=== PATIENT | male | born 1965 | race Caucasian/White ===

== ENCOUNTER 2020-10-27 15:08 | Emergency (ER) | payer MEDICAID ==
[2020-10-27 15:29] VITALS: BP 132/76; PULSE 82
--- NOTE | 2020-10-27 16:08 | EDM.PDOC ---
ED HPI GENERAL MEDICAL PROBLEM - General Chief Complaint: Chest Pain Stated Complaint: TIGHTNESS IN L SIDE OF CHEST Time Seen by Provider: 10/27/20 15:40 Source of Information: Reports: Patient History Limitations: Reports: No Limitations - History of Present Illness INITIAL COMMENTS - FREE TEXT/NARRATIVE: 55-year-old male who has been having a dull left-sided very localized chest pressure or tightness which waxes and wanes with activity, as well as some persistent fatigue. No fevers or chills, no shortness of breath, no pleuritic chest pain, no diaphoresis or nausea or vomiting. The pain does not radiate to the arm or back, neck or jaw. Sometimes it lasts just a few minutes, other times it lasts 10 to 20 minutes. He is usually very active and works out with his kids, including boxing and aerobic activity. He called the clinic to discuss whether it could be a reaction to his second Covid vaccination which he had 3 weeks ago, and he was told to go to the ER. He arrives asymptomatic. Onset: Gradual, Unknown/Unsure Duration: Week(s): (Symptoms for the past 2 to 3 weeks) Location: Reports: Chest (Left parasternal anterior chest) Associated Symptoms: Reports: Chest Pain (Pressure sensation in the left chest), Other (Only other symptom is fatigue and activity intolerance compared to his baseline). Denies: Confusion, Diaphoresis, Fever/Chills, Headaches, Loss of Appetite, Malaise, Shortness of Breath Chest Pain Score (Numeric/FACES): 4 - Related Data Allergies Allergy/AdvReac Type Severity Reaction Status Date / Time Sulfa (Sulfonamide Allergy Severe Hives Verified 10/27/20 15:42 Antibiotics) allopurinol Allergy Stomach Verified 10/27/20 15:42 Upset [id number] Reductase Allergy Cannot Verified 10/27/20 15:42 Inhibitor Remember Home Meds: Home Meds metFORMIN [Glucophage XR] 500 mg PO DAILY 10/15/12 [History] Febuxostat [Uloric] 40 mg PO DAILY 07/29/15 [History] lisinopriL [Zestril] 10 mg PO DAILY 07/29/15 [History] Past Medical History HEENT History: Reports: Impaired Vision Other HEENT History: Lasik to bilateral eyes Cardiovascular History: Reports: Hypertension Other Cardiovascular History: Rheumatic fever Genitourinary History: Reports: Renal Calculus Musculoskeletal History: Reports: Gout Endocrine/Metabolic History: Reports: Diabetes, Type II - Infectious Disease History Infectious Disease History: Reports: Chicken Pox, Measles, Mumps, Rheumatic Fever - Past Surgical History Cardiovascular Surgical History: Reports: None Male Surgical History: Reports: Kidney Stone Extraction, Renal Calculus Musculoskeletal Surgical History: Reports: None Social & Family History - Family History Family Medical History: No Pertinent Family History - Tobacco Use Tobacco Use Status *Q: Current Every Day Tobacco User Years of Tobacco use: 16 Packs/Tins Daily: 1 ED ROS GENERAL - Review of Systems Review Of Systems: See Below Constitutional: Denies: Fever, Chills HEENT: Reports: No Symptoms Respiratory: Denies: Shortness of Breath, Pleuritic Chest Pain Cardiovascular: Reports: Chest Pain, Other (Had a stress test 8 years ago and did well). Denies: Palpitations GI/Abdominal: Denies: Abdominal Pain, Decreased Appetite, Nausea, Vomiting : Reports: No Symptoms Musculoskeletal: Reports: No Symptoms Skin: Reports: No Symptoms Neurological: Reports: Dizziness, Weakness (Mild generalized weakness and fatigue with activity) Psychiatric: Reports: No Symptoms ED EXAM, GENERAL - Physical Exam Exam: See Below Exam Limited By: No Limitations General Appearance: Alert, No Apparent Distress Eye Exam: Bilateral Eye: Normal Inspection Head: Atraumatic Neck: Supple, Non-Tender Respiratory/Chest: Lungs Clear Cardiovascular: Regular Rate, Rhythm, No Murmur. No: Tachycardia GI/Abdominal: Soft, Non-Tender Extremities: Normal Inspection. No: Pedal Edema Neurological: Alert, Oriented Psychiatric: Normal Affect, Normal Mood Skin Exam: Warm, Dry #1 Interpretation EKG Date: 10/27/20 Time: 15:35 Rhythm: NSR QRS: Normal ST-T: Normal Comparison: NA - No Prior EKG EKG Interpretation Comments: Minimal diffuse ST elevation is nonspecific Course - Vital Signs Last Recorded V/S: Last Vital Signs Temp 97.6 F 10/27/20 15:28 Pulse 82 10/27/20 15:28 Resp 13 10/27/20 15:28 BP 132/76 10/27/20 15:28 Pulse Ox 97 10/27/20 15:28 - Orders/Labs/Meds Orders: Active Orders 24 hr Category Date Time Status EKG 12 Lead [EK] Routine Ther 10/27/20 16:03 Ordered Labs: Laboratory Tests 10/27/20 10/27/20 10/27/20 Range/Units 16:10 16:10 16:10 WBC 6.2 (4.5-11.0) K/uL RBC 4.90 (4.30-5.90) M/uL Hgb 15.8 H (12.0-15.0) g/dL Hct 44.4 (40.0-54.0) % MCV 91 (80-98) fL MCH 32 H (27-31) pg MCHC 36 (32-36) % Plt Count 228 (150-400) K/uL Neut % (Auto) 43.3 (36-66) % Lymph % (Auto) 42.5 (24-44) % [place] % (Auto) 8.8 H (2-6) % Eos % (Auto) 4.3 H (2-4) % Baso % (Auto) 1.1 H (0-1) % ESR 10 (0-20) mm/hr D-Dimer, Quantitative 334.20 (0.0-500.0) ng/mL Sodium 133 L (140-148) mmol/L Potassium 4.4 (3.6-5.2) mmol/L Chloride 100 (100-108) mmol/L Carbon Dioxide 26 (21-32) mmol/L Anion Gap 11.4 (5.0-14.0) mmol/L BUN 15 (7-18) mg/dL Creatinine 1.0 (0.8-1.3) mg/dL Est Cr Clr Drug Dosing 82.48 mL/min Estimated GFR (MDRD) > 60 (>60) Glucose 146 H (74-106) mg/dL Calcium 8.9 (8.5-10.1) mg/dL Total Bilirubin 0.2 (0.2-1.0) mg/dL AST 36 (15-37) U/L ALT 81 H (12-78) U/L Alkaline Phosphatase 69 (46-116) U/L Troponin I < 0.017 (0.000-0.056) ng/mL Total Protein 7.2 (6.4-8.2) g/dL Albumin 3.7 (3.4-5.0) g/dL Globulin 3.5 (2.3-3.5) g/dL Albumin/Globulin Ratio 1.1 L (1.2-2.2) - Re-Assessments/Exams Free Text/Narrative Re-Assessment/Exam: 10/27/20 16:08 EKG is nonspecific, after a long discussion CBC, CMP, troponin, CRP and sed rate were obtained. Two-view chest x-ray also ordered. 10/27/20 17:18 Troponin 0, CBC is normal, CMP is reassuring, sed rate is normal and two-view chest x-ray is negative. D-dimer is also normal. I recommended the patient be set up for stress test and offered to do that but he wanted to talk to his primary provider in the next few days about this first. He will return if the pain recurs and is persistent, or it worsens such as radiation of pain. Departure - Departure Time of Disposition: 17:28 Disposition: Home, Self-Care 01 Clinical Impression: Chest pain, atypical - Discharge Information Instructions: Nonspecific Chest Pain, Adult, [id number] Referrals: Elizabeth Luong PA [Primary Care Provider] - Forms: ED Department Discharge Care Plan Goals: Activity as tolerated, continue your regular medications, and consider talking to your primary provider about setting up a stress test in the near future. Return to the emergency room at any time if pain recurs and is persistent especially with radiation to the arm or jaw, diaphoresis or significant shortne ss of breath. Sepsis Event Note (ED) - Evaluation Sepsis Screening Result: No Definite Risk - My Orders Last 24 Hours: My Active Orders 10/27/20 16:03 EKG 12 Lead [EK] Routine - Assessment/Plan Last 24 Hours: My Active Orders 10/27/20 16:03 EKG 12 Lead [EK] Routine
--- NOTE | 2020-10-28 08:52 | CR ---
CHEST: 2 view CLINICAL HISTORY:Dyspnea COMPARISON:None FINDINGS: The heart size, pulmonary vascularity and hilar structures are normal. No infiltrate effusion or pneumothorax is seen. IMPRESSION: No acute cardiopulmonary process.
== END 2020-10-27 17:29 | disposition home or self-care (01) ==
LOC: JP.ED 15:08
DX: R07.89 Other chest pain (principal); I10 Essential (primary) hypertension; E11.9 Type 2 diabetes mellitus without complications; Z79.84 Long term (current) use of oral hypoglycemic drugs; Z72.0 Tobacco use; Z88.2 Allergy status to sulfonamides; Z88.8 Allergy status to other drugs, medicaments and biological substances; Z79.899 Other long term (current) drug therapy
CPT/HCPCS: 36415; 71046; 71046-26; 80053; 84484; 85025; 85379; 85651; 93005; 99285-25

== ENCOUNTER 2022-01-27 16:01 | Emergency (ER) | payer MEDICAID ==
[2022-01-27 16:38] VITALS: BP 120/80; PULSE 83
[2022-01-27] MEDS ORDERED: Tamsulosin 0.4 MG Cap.ER PO ONE (16:50)
[2022-01-27] MEDS ORDERED: Ketorolac 30 MG/ML SDV IM ONE (16:50)
== END 2022-01-27 18:32 | disposition home or self-care (01) ==
LOC: JP.ED 16:01
DX: N13.2 Hydronephrosis with renal and ureteral calculous obstruction (principal); I10 Essential (primary) hypertension; M10.9 Gout, unspecified; E11.9 Type 2 diabetes mellitus without complications; Z72.0 Tobacco use; Z79.84 Long term (current) use of oral hypoglycemic drugs; Z79.899 Other long term (current) drug therapy; Z88.2 Allergy status to sulfonamides; Z88.8 Allergy status to other drugs, medicaments and biological substances
CPT/HCPCS: 36415; 74176; 80048; 81001; 85025; 96372; 99284; A9270; J1885